=== PATIENT | female | born 1995 | race Caucasian/White ===

== ENCOUNTER 2020-02-01 22:41 | Emergency (ER) | payer BC ==
[~2020-02-01] VITALS: Ht 175.3 cm; Wt 131.8 kg
[2020-02-01 22:54] VITALS: Ht 175.3 cm; Wt 131.8 kg
[2020-02-01] MEDS ORDERED: PENICILLIN V P500 MG PO (23:46)
[2020-02-02 00:03] VITALS: BP 138/84
== END 2020-02-02 00:03 | disposition home or self-care (01) ==
LOC: D.ER 22:41
DX: O26.893 Other specified pregnancy related conditions, third trimester (principal); Z3A.39 39 weeks gestation of pregnancy; K08.89 Other specified disorders of teeth and supporting structures

== ENCOUNTER 2020-02-05 22:33 | Inpatient (IN) | payer MEDICAID ==
[~2020-02-05] VITALS: Ht 175.3 cm; Wt 139.8 kg
--- NOTE | ~2020-02-05 | OP ---
PATIENT NAME: CHENCHO ESPINAL MEDICAL RECORD: [id number] :97 LOCATION:[id number] ADMISSION DATE:02/05/20 SURGEON: SHARI HERRERA DO DATE OF OPERATION: 02/06/2020 PREOPERATIVE DIAGNOSES: Suspected herpes simplex virus lesion, nonreassuring heart tracing. POSTOPERATIVE DIAGNOSES: Suspected herpes simplex virus lesion, nonreassuring heart tracing. PRIMARY SURGEON: Shari Herrera DO ANESTHESIA: Epidural. PROCEDURE: Primary low transverse section via Pfannenstiel incision, HSV culture. FINDINGS: Male delivered at 2356, weight 7 pounds 15 ounces, Apgars 8 and 9. Normal placenta, bilateral fallopian tubes, bilateral ovaries grossly. SPECIMENS: Placenta and cord. ESTIMATED BLOOD LOSS: 800 cc. IV fluids: 2500 cc. URINE OUTPUT: 150 cc clear urine. COMPLICATIONS: None. CONDITION: Stable. DESCRIPTION OF PROCEDURE: The risks, benefits, alternatives and indications of the procedure were discussed with the patient. She voiced understanding of the procedure and wished to proceed. She was taken to the OR where epidural anesthesia was administered and found to be adequate. She was placed in the dorsal supine position with leftward tilt. She was prepped and draped in normal sterile fashion. A Pfannenstiel skin incision was made with a scalpel and carried down to the underlying layer of the fascia with the Bovie. The fascia was incised in the midline and extended laterally. The inferior aspect of the fascial incision was grasped with Scotty clamps and the rectus muscle was dissected off sharply. Attention was then turned to the superior aspect of the fascial incision. The rectus muscle was dissected off in a similar fashion. The rectus muscle was in the midline down to the level peritoneum. The peritoneum was identified and noted to be free of adherent bowel and entered bluntly. The peritoneum was further with gentle traction. The bladder blade was inserted. The uterus was incised in a transverse fashion in the lower uterine segment. The incision was extended with cephalad caudad traction. The infant's head was brought to the incision and the infant delivered without difficulty. Mouth and nose were suctioned. Cord was clamped and cut and the infant was handed off to awaiting pediatricians. The placenta was manually removed. The uterus was exteriorized and a moist lap was used to assure complete removal of placenta membranes. The hysterotomy was closed with 0 Vicryl in a running locked fashion with good hemostasis. The posterior OPERATIVE REPORT [id number] KYLIECHENCHO cul-de-sac was irrigated with warm sterile water. Uterus, tubes, and ovaries were noted to be normal and returned back to the abdominal cavity. A moist laparotomy sponge was used to assure complete removal of blood clots and fluid from the abdominal cavity. The hysterotomy was reinspected and noted to be hemostatic. The rectus muscle was closed with 2-0 Monocryl in a running fashion with good hemostasis. The fascial incision was closed with 0 Vicryl in a running fashion with good hemostasis. The subcutaneous fat was closed with 2-0 plain gut suture with good hemostasis and the skin was closed in a subcuticular fashion with 3-0 Monocryl and Dermabond covering. All needle, lap, sponge, and instrument counts were correct times 2. The patient tolerated the procedure well and after an HSV culture was taken of the lesion, she was taken to the recovery room in stable condition. TRANSINT:[id number] Voice Confirmation ID: [id number] DOCUMENT ID: [id number] SHARI HERRERA DO CC: [id number] DICTATION DATE: 02/11/20 1328 AIR SAMPLER: 02/11/201923 DIS IN 02/09/20 [facility] [address] [id number]
[~2020-02-05 22:33] MED LIST: PENICILLIN V P500 MG PO
[2020-02-05 22:47] VITALS: BP 125/70; Ht 175.3 cm; Wt 139.8 kg
[2020-02-05 23:28] LABS: HEMATOCRIT 36.9 % (36.0-48.0); HEMOGLOBIN 12.5 g/dL (12-16); MCH 31.4 pg (26.0-34.0); MCHC 33.9 g/dL (31.0-37.0); MCV 92.7 fL (80.0-100.0); MEAN PLATELET VOLUME 8.7 fL (7.4-10.4); RBC 3.98 10x6/uL (4.00-5.40); RDW 13.3 % (11.5-14.5); WBC 9.8 10x3/uL (4.8-10.8)
[2020-02-05 23:58] LABS: BILIRUBIN NEGATIVE (NEGATIVE); KETONE NEGATIVE (NEGATIVE); NITRITE NEGATIVE (NEGATIVE); UROBILINOGEN NORMAL (NORMAL)
[2020-02-05 23:59] LABS: BACTERIA FEW /hpf (NONE SEEN); EPITHELIAL CELLS 0-5 /hpf (0-5); RED CELLS - URINE 0-5 /hpf (0-5); WHITE CELLS - URINE 0-5 /hpf (0-5)
[2020-02-06 11:08] LABS: UDS - AMPHET NEGATIVE QUAL (NEGATIVE); UDS - BARB NEGATIVE QUAL (NEGATIVE); UDS - BENZO NEGATIVE QUAL (NEGATIVE); UDS - COCAINE NEGATIVE QUAL (NEGATIVE); UDS - OPIATE NEGATIVE QUAL (NEGATIVE); UDS - PCP NEGATIVE QUAL (NEGATIVE); UDS - THC NEGATIVE QUAL (NEGATIVE)
[2020-02-07] VITALS (12 sets, daily range): BP systolic 95–122; BP diastolic 51–58
--- NOTE | 2020-02-07 02:00 | NUR ---
PT BACK TO ROOM FROM PACU AWAKE, ALERT AND ORIENTED X3.VSS. PT RATES PAIN 6/10. LUNG SOUNDS CLEAR BILATERALLY, ENCOURAGED TCDB AND D/W PT INCENTIVE SPIROMETER AND PT DEMONSTRATED UNDERSTANDING. BOWEL SOUNDS HYPOACTIVE. ABD SOFT BANDAGE TO LOWER ABD CLEAN DRY AND INTACT. FUNDUS FIRM MIDLINE AT UMBILICUS WITH SMALL AMOUNT OF RUBRA LOCHIA RETURNED WITH MASSAGE. SCD'S ON. CALL LIGHT IN REACH SR UP X2.
--- NOTE | 2020-02-07 02:15 | NUR ---
FUNDUS FIRM MIDLINE AT UMBILICUS WITH SMALL AMOUNT OF RUBRA LOCHIA RETURNED WITH FUNDAL MASSAGE.
--- NOTE | 2020-02-07 02:30 | NUR ---
UNDUS FIRM MIDLINE @ umbilcus lochia rubra scant
--- NOTE | 2020-02-07 02:45 | NUR ---
fundus firm midline @ umbilicus with rubra lohia
--- NOTE | 2020-02-07 03:00 | NUR ---
pt resting quietly in bed, pt states religion department chair is helpful for incision pain. fundus firm midline 1 fb below umbilicus. scant amount of rubra lochia returned with fundal massage.
--- NOTE | 2020-02-07 03:15 | NUR ---
FUNDUS FIRM MIDLINE 2 FB BELOW UMBILICUS WITH SCANT AMT OF RUBRA LOCHIA.
--- NOTE | 2020-02-07 03:30 | NUR ---
PT RESTING IN BED DENIES ANY COMPLAINTS OR NEEDS. FUNDUS FIRM MIDLINE 2 FB BELOW UMBILICUS WITH SCANT RUBRA LOCHIA. ABD BANDAGE CLEAN DRY AND INTACT.
--- NOTE | 2020-02-07 03:45 | NUR ---
FUNDUS FIRM MIDLINE 2 FB BELOW UMBILICUS WITH SCANT AMT OF RUBRA LOCHIA.
--- NOTE | 2020-02-07 04:00 | NUR ---
RECOVERY COMPLETE, PT SITTING UP ATTEMPTING TO BREASTFEED WITH NURSERY ASSISTING. TCDB DONE, FUNDUS FIRM MIDLINE 2 FB BELOW UMBILICUS WITH SCANT AMT OF RUBRA LOCHIA. SCD'S REMAIN ON.
--- NOTE | 2020-02-07 04:30 | NUR ---
VSS, FUNDUS FIRM MIDLINE 2 FB BELOW UMBILICUS WITH SCANT AMT OF RUBRA LOCHIA. YUE CARE DONE WITH PADS AND CHUX PAD CHANGED. FOSS CARE DONE. SCD'S REMAIN ON. PT DRINKING APPLE JUICE AND WATER WITHOUT NAUSEA. RATES PAIN 4/10 DESCRIBES "SORENESS". TORPEDO MAN BUTTON, CALL LIGHT IN REACH, SR UP X2, S/O AT BEDSIDE.
[2020-02-07 07:14] LABS: RAPID PLASMA REAGIN Non Reactive (Non Reactive)
[2020-02-07 07:15] LABS: BASOPHILS 0.1 % (0-2); EOSINOPHILS 0 % (0-7); HEMATOCRIT 33.1 % (36.0-48.0); IMMATURE GRANULOCYTES 0.4 % (0-5); LYMPHOCYTES 11.5 % (15-50); MCH 31.1 pg (26.0-34.0); MCHC 33.2 g/dL (31.0-37.0); MCV 93.5 fL (80.0-100.0); MEAN PLATELET VOLUME 9.3 fL (7.4-10.4); MONOCYTES 6.7 % (2-11); NEUTROPHILS 81.3 % (40-80); PLATELET COUNT 188 10x3/uL (130-400); RBC 3.54 10x6/uL (4.00-5.40); RDW 13.2 % (11.5-14.5)
--- NOTE | 2020-02-07 07:15 | NUR ---
REPORT GIVEN BY DAWIT WOMACK RN
[2020-02-07 07:17] LABS: WBC 13.8 10x3/uL (4.8-10.8)
--- NOTE | 2020-02-07 08:15 | NUR ---
ASSESSMENT COMPLETED. PT HAS AN IV IN HER RIGHT WRIST. SHE HAS A SLP TEACHER PUMP FOR PAIN. THIS IS RUNNING AT 125 ML/HR. SHE HAS A FOSS CATHETER THAT IS DRAINING YELLOW URINE. HER FUNDUS IS FIRM. SHE HAS NOT BEEN OUT OF BED SINCE HER SECTION LAST NIGHT. LOCHIA IS MOD TO SMALL. SKIN IS WARM AND DRY. HEART SOUNDS WNL, LUNGS SOUND CLEAR AND BOWEL SOUNDS HEARD. HER CALL LIGHT IS WITHIN REACH AND HER IS IN THE ROOM WITH HER. NO C/O OF PAIN AT THIS TIME. NO NEEDS. PT WOULD REALLY LIKE TO HAVE A REGULAR DIET AND I TOLD HER MAYBE AT NOON.
--- NOTE | 2020-02-07 10:30 | NUR ---
FOSS CATHETER HAS BEEN REMOVED. SHE HAD 800 NL OF URINE IN THE CATHETER BAG. HER IV WAS SALINE LOCKED. SHE IS NOW ON PO MEDS. PT WILL HAVE A REGULAR DIET AT LUNCH. PT HAS NOT HAD ANY C/O OR NEEDS. SHE KNOWS TO CALL US WHEN SHE HAS TO GO TO THE BATHROOM.
--- NOTE | 2020-02-07 11:02 | NUR ---
PT WAS GIVEN PERCOCET 10 PO FOR PAIN. SHE RATED HER PAIN A 7 AT THIS TIME.
--- NOTE | 2020-02-07 11:45 | NUR ---
PT GOT UP AND WALKED TO THE BATHROOM. SHE HAD A GUSH OF BLOOD FROM BEING IN BED SO LONG. SHE GOT CLEANED UP AND SHE AMBULATED BACK TO BED WITH PADS IN PLACE AND PANTIES. SHE DID VERY WELL WITH HER AMBULATION.
--- NOTE | 2020-02-07 12:15 | NUR ---
PT IS HAVING LUNCH. SHE HAS BEEN HUNGRY ALL MORNING. SHE HAS NO C/O AT THIS TIME
--- NOTE | 2020-02-07 14:05 | NUR ---
PT IS DOING WELL NOW WITH NO C/0
--- NOTE | 2020-02-07 15:28 | NUR ---
PT IS DOING WELL. NO C/O.
--- NOTE | 2020-02-07 16:15 | NUR ---
EATING DINNER. NO NEW C/O
--- NOTE | 2020-02-07 17:23 | NUR ---
PT RESTING QUIETLY WITHOUT C/O NO NEEDS AT THIS TIME
--- NOTE | 2020-02-07 18:18 | NUR ---
VSS. FUNDUS FIRM, MIDLINE AND U2 WITH SMALL AMT RUBRA LOCHIA, NO CLOTS NOTED. 700 MLS YELLOW URINE EMPTIED FROM FOSS. ICE WATER PROVIDED. DENIES ADDITIONAL NEEDS. BED IN LOW POSITION WITH SRUP X2. CALL LIGHT AND PHONE WITHIN REACH. WILL CONTINUE MONITOR.
--- NOTE | 2020-02-07 19:30 | NUR ---
PT RESTING QUIETLY WITH EYES CLOSED NO DISTRESS NOTED. S/O AND AT BEDSIDE.
--- NOTE | 2020-02-07 20:30 | NUR ---
PT AWAKE ALERT TENDING TO , VSS, ASSESSMENT COMPLETE. PT STATES IS FEELING MUCH BETTER THIS EVENING AFTER EATING AND GETTING UP. LUNG SOUNDS CLEAR BILATERALLY, ABD SOFT, BS POSITIVE, PT STATES IS PASSING FLATUS. FUNDUS FIRM MIDLINE 2 FB BELOW UMBILICUS. RUBRA LOCHIA SCANT. 1+ PITTING EDEMA NOTED BLE. PT UP VOIDING PRN. DENIES ANY NEEDS OR DISCOMFORTS.
--- NOTE | 2020-02-08 02:00 | NUR ---
PT RESTING QUIETLY WITH EYES CLOSED NO DISTRESS NOTED.
--- NOTE | 2020-02-08 04:50 | NUR ---
PERCOCET 10MG 1 TABLET GIVEN FOR C/O ABD INCISION PAIN. PT SITTING UP DENIES ANY FURTHER NEEDS
--- NOTE | 2020-02-08 06:14 | NUR ---
PT SITTING UP IN BED, STATES PAIN IMPROVED WITH PAIN MED. DENIES ANY FURTHER NEEDS.
--- NOTE | 2020-02-08 07:30 | NUR ---
ENTERED ROOM- PT FINISHING BREAKFAST. AWAKE AND ALERT. ASSESSMENT DONE. STATES THAT PAIN IS BETTER AFTER MEDICATION GIVEN. NOTED EDEMA IN FEET-STATES THEY HAVE BEEN THAT WAY FOR AWHILE. DENIES NEEDS AT THIS TIME.
[2020-02-08 07:38] VITALS: BP 125/58
--- NOTE | 2020-02-08 09:43 | NUR ---
UP TO SHOWER.
--- NOTE | 2020-02-08 11:03 | NUR ---
RINGS CALL LIGHT-REQUESTING PAIN MEDICATION- RATES PAIN 7 ON SCALE OF 0-10. PAIN AT INCISION SITE.
[2020-02-08 12:41] VITALS: BP 17/65
--- NOTE | 2020-02-08 12:57 | NUR ---
SALINE LOCK REMOVED WITHOUT INCIDENT-CATH TIP INTACT. PRESSURE HELD AND BANDAIDE APPLIED.
--- NOTE | 2020-02-08 17:00 | NUR ---
sitting up in bed- at breast- denies wanting pain medication. denies needs.
--- NOTE | 2020-02-08 17:40 | NUR ---
RINGS CALL LIGHT- REQUESTING PAIN MEDICATION. CO PAIN AT INCISION AND RATES PAIN A 7 ON SCALE OF 0-10. MED GIVEN.
[2020-02-08 17:42] VITALS: BP 115/58
[2020-02-08 19:14] VITALS: BP 116/62
--- NOTE | 2020-02-08 19:21 | NUR ---
PT ASSESSMENT COMPLETED, SEE ASSESSMENT FLOW SHEET. ABD INC W/A, COVERED W/ ABD PAD, PT STATES NO DISCOMFORT W/ AMBULATION OR VOIDING. PT TEACHING REGARDING DEEP BREATHING AND COUGHING AND USE OF IS.
--- NOTE | 2020-02-08 21:49 | NUR ---
ROOM CHECK, SITTING UP IN BED BREAST FEEDING , SIG OTHER AT THE BEDSIDE, NO NEEDS VOICED, ICE WATER GIVEN.
--- NOTE | 2020-02-08 23:30 | NUR ---
sittig up in bed holding , no needs voiced.
--- NOTE | 2020-02-09 01:00 | NUR ---
at bedside, pt c/o incisional pain, medicated per orders, states has been up to bathroom and is passing gas, in open crib at bedside.
--- NOTE | 2020-02-09 03:00 | NUR ---
resting quietly, eyes closed, respirations even and unabored. did not disturb
--- NOTE | 2020-02-09 05:39 | NUR ---
at bedside, alert and oriented, no needs voiced. in open crib at bedside
[2020-02-09 08:26] VITALS: BP 121/67
--- NOTE | 2020-02-09 08:35 | NUR ---
NORCO 10/325, MOTRIN 600 MG AND MYLICON 80 MG GIVEN PO ORDERED FOR PT C/O INCISIONAL/GAS PAIN OF "6" ON 0-10 PAIN SCALE. PT INSTRUCTED ON ALL MEDS. VERBALIZES UNDERSTANDING.
--- NOTE | 2020-02-09 09:50 | NUR ---
PT SITTING UP IN BED. CARING FOR INFANT. DENIES C/O OR NEEDS.
[2020-02-09] MEDS ORDERED: PERCOCET 5-3251 TAB PO (10:08)
--- NOTE | 2020-02-09 11:30 | NUR ---
PT SITTING UP IN BED. DENIES C/O OR NEEDS.
--- NOTE | 2020-02-09 13:00 | NUR ---
DR WEST HERE. VISITS WITH PT. ORDERS RECEIVED TO DC HOME AND F/U WITH DR HERRERA IN 2 WEEKS.
--- NOTE | 2020-02-09 15:20 | NUR ---
PT GIVEN DISCHARGE INSTRUCTIONS. PT VERBALIZES UNDERSTANDING OF ALL INSTRUCTIONS. COPIES OF INSTRUCTIONS GIVEN TO PT. PT GIVEN RX FOR PERCOCET 5325. PT PREPARES FOR DISCHARGE.
--- NOTE | 2020-02-09 15:40 | NUR ---
PERCOCET 10/325 AND MOTRIN 600 MG GIVEN PO ORDERED FOR PT C/O INCISIONAL PAIN. RHOGAM FULL DOSE GIVEN IM TO LEFT DELTOID. BANDAID TO SITE. PT INSTRUCTED ON MED. VERBALIZES UNDERSTANDING. WALLY WELL.
--- NOTE | 2020-02-09 17:05 | NUR ---
PT READY FOR DISCHARGE. PT DISCHARGED IN STABLE CONDITION VIA WHEELCHAIR TO PRIVATE VEHICLE.
== END 2020-02-09 17:05 | disposition home or self-care (01) | DRG 788 ==
LOC: D.LD 22:33
PROVIDERS: ADMIT Student in an Organized Health Care Education/Training Program; ATTEND Student in an Organized Health Care Education/Training Program
PROC: 10D00Z1 Extraction of Products of Conception, Low, Open Approach (ICD-10-PCS; principal; 2020-02-07)
DX: O99.824 Streptococcus B carrier state complicating childbirth (principal); Z3A.40 40 weeks gestation of pregnancy; Z37.0 Single live birth; O36.8330 Maternal care for abnormalities of the fetal heart rate or rhythm, third trimester, not applicable or unspecified; R00.0 Tachycardia, unspecified; O90.89 Other complications of the puerperium, not elsewhere classified; N89.8 Other specified noninflammatory disorders of vagina; O75.89 Other specified complications of labor and delivery; Z87.891 Personal history of nicotine dependence